=== PATIENT | female | born 1995 | race Caucasian/White ===

== ENCOUNTER 2018-09-03 03:32 | Emergency (ER) | payer SELFPAY ==
[~2018-09-03] VITALS: Ht 162.6 cm; Wt 59.9 kg
--- NOTE | 2018-09-03 03:31 | NUR ---
ED Nurse Note: Patient BIBA by RA 59 ETOH intoxication.
--- NOTE | 2018-09-03 03:41 | Emergency Room Report ---
History of Present Illness General Chief Complaint: Alcohol Intoxication Source: Patient, EMS (Briseida Concepcion DO) Present Illness HPI Patient was brought in by paramedics Patient was reported to be picked up at a fast food restaurant the Employees at the restaurant reported that the patient was there with a friend left And the patient was here by herself Upon arrival the patient reports that she wants to go home Admits to drinking alcohol earlier today denies any drugs denies any chest pain denies any nausea (Briseida Concepcion DO) Allergies: Coded Allergies: No Known Allergies (Unverified , 09/03/18) Patient History Past Medical History: see triage record Pertinent Family History: none Last Menstrual Period: UNK Now: No - unk Reviewed Nursing Documentation: PMH: Agreed; PSxH: Agreed (Briseida Concepcion DO) Nursing Documentation-PMH Past Medical History: No Stated History (Briseida Concepcion DO) Review of Systems All Other Systems: limited - Other than the ones mentioned in the history of present illness all others are reviewed however they do stay limited due to the patient's mental status (Briseida Concepcion DO) Physical Exam Vital Signs Date Time Temp Pulse Resp B/P (MAP) Pulse Ox O2 Delivery O2 Flow Rate FiO2 09/03/18 03:22 98.4 94 18 124/83 98 Room Air Sp02 EP Interpretation: reviewed, normal General Appearance: no apparent distress Head: normocephalic, atraumatic Eyes: bilateral eye PERRL, bilateral eye EOMI ENT: normal pharynx Neck: supple Respiratory: lungs clear, normal breath sounds, no retraction Cardiovascular #1: regular rate, rhythm, no murmur Gastrointestinal: non tender, soft Musculoskeletal: normal inspection Neurologic: alert, responsive Skin: normal color, no rash Lymphatic: no adenopathy (Briseida Concepcion DO) Medical Decision Making Diagnostic Impression: Primary Impression: Acute alcoholic intoxication ER Course Patient able to verbalize appropriately Had benign underlying medical evaluation Patient does appear heavily inebriated however is allowed to rest Will require repeat evaluation prior to final disposition (Briseida Concepcion DO) ER Course Patient is a 23-year-old female who admits to drinking last night at a club, she feels better now, and reports she lives alone and feels comfortable going home. She has no signs of external trauma and is not clinically intoxicated, ambulates to the bathroom and back without difficulty. (ANDREW SILVA M.D) Last Vital Signs Date Time Temp Pulse Resp B/P (MAP) Pulse Ox O2 Delivery O2 Flow Rate FiO2 09/03/18 03:22 98.4 94 18 124/83 98 Room Air Status: improved (Briseida Concepcion DO) Disposition: HOME, SELF-CARE Condition: Improved Scripts No Active Prescriptions or Reported Meds Briseida Concepcion DO Sep 03, 2018 03:41 ANDREW SILVA M.D Sep 03, 2018 08:15
[2018-09-03 03:44] VITALS: BP 124/83
--- NOTE | 2018-09-03 04:30 | NUR ---
ED Nurse Note: Patient sleeping comfortably.
[2018-09-03 06:21] VITALS: BP 98/48
--- NOTE | 2018-09-03 06:22 | NUR ---
ED Nurse Note: Patient is sleeping soundly no s/s of acute distress.
--- NOTE | 2018-09-03 07:20 | NUR ---
ED Nurse Note: reports received. pt lying in bed with eye closed. no facial grimacing or moaning noted. skin warm to noted. no open wound noted. AAO x4. respirations even and non-labored noted. denies n/v. will wait until pt fully sober.
[2018-09-03 08:03] VITALS: BP 104/67
--- NOTE | 2018-09-03 08:11 | NUR ---
ED Nurse Note: pt wake up and went to restroom with steady gait. pt did not remember what happen last night. 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 Dr. Rodriguez notified.
--- NOTE | 2018-09-03 09:28 | NUR ---
ED Nurse Note: breakfast tray provide.
[2018-09-03 09:56] VITALS: BP 111/71
--- NOTE | 2018-09-03 09:58 | NUR ---
ER DISCHARGE NOTE: Patient is cleared to be discharged per ERMD, pt is aox4, on room air, with stable vital signs. pt was given dc instructions, pt was able to verbalize understanding, pt id band removed. pt is able to ambulate with steady gait. pt took all belongings.
== END 2018-09-03 09:59 | disposition home or self-care (01) ==
LOC: EDBD 03:32 → EMR 04:00
DX: F10.129 Alcohol abuse with intoxication, unspecified (principal)
CPT/HCPCS: 99283